=== PATIENT | male | born 1960 | race Caucasian/White ===

== ENCOUNTER 2017-11-09 19:21 | Emergency (ER) | payer SELFPAY ==
[~2017-11-09] VITALS: Ht 175.3 cm; Wt 63.0 kg
[~2017-11-09 19:21] MED LIST: ALBU6.7H INH
[2017-11-09 19:24] VITALS: BP 112/59; PULSE 105; RESP 22; TEMP 98.8; O2SAT 96
[2017-11-09] MEDS ORDERED: ALBUAER3 INH (19:53)
[2017-11-09] MEDS ORDERED: AZIT250T3 PO (19:53)
[2017-11-09] MEDS ORDERED: PRED20 PO (19:53)
--- NOTE | 2017-11-09 19:58 | PD ---
HPI Chief Complaint: Cold / Flu Symptoms Time Seen by Provider: 19:46 Travel History International Travel<30 days: No Contact w/Intl Traveler<30days: No Traveled to known affect area: No History of Present Illness HPI 57-year-old male tobacco user with history of COPD presents for evaluation of cough, congestion, wheezing. Symptoms started 1 week ago. Cough is productive with yellow sputum. He has had no fevers or chills. Denies sore throat, abdominal pain, nausea or vomiting. He ran out of his own albuterol inhaler but he has been using his friend's. He has no other complaints at this time. [facility] Past Medical History Asthma: Yes COPD: Yes Diminished Hearing: No Inguinal Hernia: Yes Respiratory: Yes (COPD) Tetanus Vaccination: < 5 Years Influenza Vaccination: No Past Surgical History Surgical History: No Previous Surgery Social History Alcohol Use: Yes (OCCASIONAL) Tobacco Use: Yes (1 PPD) Substance Use: No Allergies-Medications (Allergen,Severity, Reaction): Coded Allergies: No Known Allergies (Verified Adverse Reaction, Unknown, 11/09/17) Reported Meds & Prescriptions Reported Meds & Active Scripts Active Proair Hfa 8.5 GM Inh (Albuterol Sulfate) 90 Mcg/Act Aer 2 Puff INH Q4-6H PRN 108 mcg/actuation Prednisone 20 Mg Tab 20 Mg PO BID 5 Days Azithromycin 250 Mg Tab 250 Mg PO DAILY 4 Days Proventil Hfa (Albuterol Sulfate) 6.7 Gm Aero 1-2 Puff INH Q6 PRN Review of Systems Except as stated in HPI: all other systems reviewed are Neg Physical Exam Narrative GENERAL: Well-developed well-nourished male in no acute distress SKIN: Warm and dry. HEAD: Atraumatic. Normocephalic. EYES: Pupils equal and round. No scleral icterus. No injection or drainage. ENT: No nasal bleeding or discharge. Mucous membranes pink and moist. NECK: Trachea midline. No JVD. CARDIOVASCULAR: Regular rate and rhythm. No murmur appreciated. RESPIRATORY: No accessory muscle use. Mild inspiratory and expiratory wheezing noted bilaterally. No crackles. No rhonchi. GASTROINTESTINAL: Abdomen soft, non-tender, nondistended. Hepatic and splenic margins not palpable. MUSCULOSKELETAL: No obvious deformities. No clubbing. No cyanosis. No edema. NEUROLOGICAL: Awake and alert. No obvious cranial nerve deficits. Motor grossly within normal limits. Normal speech. PSYCHIATRIC: Appropriate mood and affect; insight and judgment normal. Data Data Last Documented VS Vital Signs Date Time Temp Pulse Resp B/P (MAP) Pulse Ox O2 Delivery O2 Flow Rate FiO2 11/09/17 19:38 30 11/09/17 19:24 98.8 105 112/59 (76) 96 Orders Orders Albuterol-Ipratropium Neb (Duoneb Neb) (11/09/17 20:00) Prednisone (Deltasone) (11/09/17 20:00) Azithromycin (Zithromax) (11/09/17 20:00) Ed Discharge Order (11/09/17 19:50) [facility] Medical Decision Making Medical Screen Exam Complete: Yes Emergency Medical Condition: Yes Medical Record Reviewed: Yes Differential Diagnosis COPD exacerbation, pneumonia, bronchitis, influenza Narrative Course Examination is consistent with COPD exacerbation. The patient is being given DuoNeb treatment and prednisone here as well as azithromycin. He is being discharged with prescriptions for the same. Diagnosis Primary Impression: COPD exacerbation Additional Instructions: Medication as prescribed. Avoid tobacco products. Follow-up with primary care physician and return for any emergent medical conditions. Med/Other Pt SpecificInfo: Prescription(s) given Scripts Albuterol 8.5 GM Inh (Proair Hfa 8.5 GM Inh) 90 Mcg/Act Aer 2 PUFF INH Q4-6H Y for SHORTNESS OF BREATH, #1 INHALER 0 Refills 108 mcg/actuation Prov: Nazario Cruz MD 11/09/17 Prednisone (Prednisone) 20 Mg Tab 20 MG PO BID for 5 Days, #10 TAB 0 Refills Prov: Nazario Cruz MD 11/09/17 Azithromycin (Azithromycin) 250 Mg Tab 250 MG PO DAILY for Infection for 4 Days, #4 TAB 0 Refills Prov: Nazario Cruz MD 11/09/17 Disposition: 01 DISCHARGE HOME Condition: Stable Aramis Garcia Nov 09, 2017 19:58
[2017-11-09] MEDS ORDERED: predniSONE 20 MG TAB PO ONE (20:00)
[2017-11-09] MEDS ORDERED: AZITHROMYCIN 250 MG TAB PO ONE (20:00)
[2017-11-09] MEDS: RESP: ALBUTEROL 2.5 MG/IPRATROPIUM 0.5 MG NEB (SCH) INH (20:02)
== END 2017-11-09 20:33 | disposition home or self-care (01) ==
LOC: PHEFT 19:21
DX: J44.1 Chronic obstructive pulmonary disease with (acute) exacerbation (principal); F17.210 Nicotine dependence, cigarettes, uncomplicated
CPT/HCPCS: 94640; 94664; 99284; J7512